=== PATIENT | female | born 1990 | race Caucasian/White ===

== ENCOUNTER → 2018-07-04 | Outpatient (CLI) | payer MEDICAID ==
[~2018-07-04] MED LIST: CEPH500C PO; FERR-18 PO; IBUP800T48 PO; PREN1TAB49 PO
== END | disposition home or self-care (01) ==
LOC: U/S 10:25
PROVIDERS: ATTEND Registered Nurse Obstetric, Inpatient
DX: O36.70X0 Maternal care for viable fetus in abdominal pregnancy, unspecified trimester, not applicable or unspecified (principal); Z3A.00 Weeks of gestation of pregnancy not specified
CPT/HCPCS: 76801; 76817

== ENCOUNTER 2018-08-24 17:07 | Emergency (ER) | payer MEDICAID ==
[~2018-08-24] VITALS: Ht 152.4 cm; Wt 105.8 kg
[2018-08-24 17:30] VITALS: Ht 152.4 cm; Wt 105.8 kg
[2018-08-24] MEDS ORDERED: ACETAMINOPHEN 500 MG TAB PO STA (19:05)
[2018-08-24] MEDS ORDERED: METOCLOPRAMIDE 10 MG TAB PO ONE (19:30)
[2018-08-24] MEDS ORDERED: ACET500C5 PO (21:13)
[2018-08-24] MEDS ORDERED: METO10TA92 PO (21:13)
[2018-08-24 21:15] VITALS: BP 109/61; PULSE 75; RESP 18
--- NOTE | 2018-08-24 21:16 | ERD ---
ER Documentation Chief Complaint Chief Complaint ABD. CRAMPS WITH N/V TODAY. 12 WKS . NO VAG. BLEEDING. HPI Patient is a 28-year-old female, G4, P2, A1, past medical history of gestational diabetes, presents the ER for concerns of lower abdominal cramps along with nausea and vomiting x1 day. Patient states she is 12 weeks . Patient states her TRANSITIONAL CARE [facility]IAISON Dr. Gibbs. Patient denies any vaginal bleeding or fluid loss . Patient denies any dysuria, urgency, urgency or hematuria. Patient states she is vomited 3 times today. Patient is tolerating p.o. fluids. Patient has normal urine output. Patient states her last menstrual period was on June 22, 2018. ROS All systems reviewed and are negative except as per history of present illness. Medications Home Meds Active Scripts Metoclopramide* (Reglan*) 10 Mg Tablet, 10 MG PO Q6 PRN for NAUSEA AND/OR VOMITING, #10 TAB Prov:HERNAN CUELLAR PA-C 08/24/18 Acetaminophen* (Tylophen*) 500 Mg Capsule, 1 CAP PO Q6H PRN for PAIN AND OR ELEVATED TEMP, #20 CAP Prov:HERNAN CUELLAR PA-C 08/24/18 Reported Medications Cephalexin* (Cephalexin*) 500 Mg Capsule, PO Q6 01/21/11 Ibuprofen* (Motrin*) 800 Mg Tab, PO Q8 01/21/11 Vits W-Ca,Fe,Fa(<1MG) () 1 Tab Tablet, 1 TAB PO D 12/12/10 Ferrous Sulfate (Iron) 325 Mg Tablet, 325 MG PO T 12/12/10 Allergies Allergies: Coded Allergies: No Known Allergy (Verified , 01/21/11) PMhx/Soc History of Surgery: No Anesthesia Reaction: No Hx Neurological Disorder: No Hx Respiratory Disorders: Yes (ASHTMA) Hx Cardiac Disorders: No Hx Psychiatric Problems: No Hx Miscellaneous Medical Probl: Yes (DENIES MEDICAL PROBLEMS) Hx Alcohol Use: No Hx Substance Use: No Hx Tobacco Use: No Smoking Status: Never smoker FmHx Family History: No diabetes Physical Exam Vitals Vital Signs Date Temp Pulse Resp B/P (MAP) Pulse Ox O2 O2 Flow FiO2 Time Delivery Rate 08/24/18 97.7 75 18 109/61 100 Room Air 21:15 (77) 08/24/18 97.6 83 18 160/80 100 17:30 (106) Physical Exam GENERAL: Well-developed, well-nourished female. Appears in no acute distress. HEAD: Normocephalic, atraumatic. EYES: Pupils are equally reactive bilaterally. EOMs grossly intact. No conjunctival erythema. ENT: Moist mucous membranes. No uvula deviation. No kissing tonsils. NECK: Supple. No meningismus. Normal range of motion of the neck. LUNG: Clear to auscultation bilaterally. No rhonchi, wheezing, rales or coarse breath sounds. HEART: Regular rate and rhythm. No murmurs, rubs or gallops. ABDOMEN: No scars, ecchymosis or rashes noted. Soft, and nondistended. Tender to palpation of the suprapubic region. Positive bowel sounds in all four quadrants. No rebound tenderness, no guarding. (-) McBurney's point tenderness. No CVA tenderness. BACK: No midline tenderness. EXTREMITIES: Equal pulses bilaterally. No peripheral clubbing, cyanosis or edema. No unilateral leg swelling. NEUROLOGIC: Alert and oriented. Moving all four extremities without any difficulty. Normal speech. Steady gait. SKIN: Normal color. Warm and dry. No rashes or lesions. Result Diagram: 08/24/18194408/24/181943 Results 24 hrs Laboratory Tests Test 08/24/18 19:44 08/24/18 19:45 Sodium Level 138 mmol/L Potassium Level 3.8 mmol/L Chloride Level 107 mmol/L Carbon Dioxide Level 22 mmol/L Anion Gap 9 Blood Urea Nitrogen 9 mg/dl Creatinine 0.50 mg/dl Est Glomerular Filtrat Rate mL/min > 60 mL/min Glucose Level 106 mg/dl Calcium Level 9.5 mg/dl Total Bilirubin 0.2 mg/dl Direct Bilirubin 0.00 mg/dl Indirect Bilirubin 0.2 mg/dl Aspartate Amino Transf (AST/SGOT) 14 IU/L Alanine Aminotransferase (ALT/SGPT) 12 IU/L Alkaline Phosphatase 50 IU/L Total Protein 7.4 g/dl Albumin 4.0 g/dl Globulin 3.40 g/dl Albumin/Globulin Ratio 1.17 Lipase 84 U/L White Blood Count 11.3 10^3/ul Red Blood Count 4.30 10^6/ul Hemoglobin 11.3 g/dl Hematocrit 35.0 % Mean Corpuscular Volume 81.4 fl Mean Corpuscular Hemoglobin 26.3 pg Mean Corpuscular Hemoglobin Concent 32.3 g/dl Red Cell Distribution Width 14.2 % Platelet Count 272 10^3/UL Mean Platelet Volume 9.1 fl Immature Granulocytes % 0.300 % Neutrophils % 76.1 % Lymphocytes % 17.6 % Monocytes % 5.0 % Eosinophils % 0.6 % Basophils % 0.4 % Nucleated Red Blood Cells % 0.0 /100WBC Immature Granulocytes # 0.030 10^3/ul Neutrophils # 8.6 10^3/ul Lymphocytes # 2.0 10^3/ul Monocytes # 0.6 10^3/ul Eosinophils # 0.1 10^3/ul Basophils # 0.0 10^3/ul Nucleated Red Blood Cells # 0.0 10^3/ul Urine Color YELLOW Urine Clarity CLOUDY Urine pH 7.0 Urine Specific Hendricks 1.021 Urine Ketones NEGATIVE mg/dL Urine Nitrite NEGATIVE mg/dL Urine Bilirubin NEGATIVE mg/dL Urine Urobilinogen NEGATIVE mg/dL Urine Leukocyte Esterase NEGATIVE Shailesh/ul Urine Microscopic RBC 1 /HPF Urine Microscopic WBC 2 /HPF Urine Squamous Epithelial Cells FEW /HPF Urine Bacteria FEW /HPF Urine Mucus MODERATE /HPF Urine Hemoglobin 1+ mg/dL Urine Glucose NEGATIVE mg/dL Urine Total Protein NEGATIVE mg/dl Current Medications Medications Dose Sig/Ashlee Start Time Status Last (Trade) Ordered Route PRN Stop Time Admin Dose Reason Admin 1,000 mg ONCE STAT 08/24/18 DC 08/24/18 Acetaminophen PO 19:05 19:51 (Tylenol 08/24/18 19:08 Tab) 10 mg ONCE ONCE 08/24/18 DC 08/24/18 Metoclopramid PO 19:30 19:50 e HCl 08/24/18 19:31 (Reglan) Procedures/MDM ED COURSE: The patient was stable throughout ED course. I kept the patient and/or family informed of laboratory and diagnostic imaging results throughout the ED course. DIAGNOSTIC IMAGING: Read by radiologist. Patient: OSMIN LOVING : 1990 Age: 28 Sex: F MR #: [id number] DOS: 08/24/18 1905 Ordering MD: HERNAN CUELLAR PA-C Location: [facility] Room/Bed: PROCEDURE: US OB Limited. CLINICAL INDICATION: with pelvic pain. TECHNIQUE: Transabdominal and transvaginal color flow, Doppler and andujar scale ultrasound images of the pelvis were obtained. COMPARISON: US PELVIS 07/04/2018 FINDINGS: Intrauterine gestation: Age: 13 weeks 3 days. Mean crown-rump length: 7.4 cm. Mean gestational sac diameter: 6.6 cm. Yolk sac: Not visualized appear heart rate: 154 bpm. Subchorionic collection: None. Placenta: Located anteriorly. Uterus: Masses: None. Nabothian cysts: None. Right ovary: Not well visualized. Left ovary: Size: 5.8 x 2.6 x 3.2 cm. Lesions: None. Vascularity: Normal. Adnexae: Masses: None. Fluid: None. IMPRESSION: Single live intrauterine with an estimated gestational age of 13 weeks 3 days, corresponding to an estimated date of delivery of February 26, 2019. Continued follow-up to assess for normal development is recommended.. Mildly enlarged, but otherwise unremarkable left ovary. Right ovary not well visualized. If characterization of this structure is needed repeat exam is recommended. RPTAT: AA .Ruddy Hagen MD, MD Date Time Electronically viewed and signed by .Ruddy Hagen MD, on 08/24/2018 20:35 .P/ CC: HERNAN CUELLAR PA-C [id number] PROCEDURES: None. MEDICATIONS GIVEN: Reglan, Tylenol Patient tolerated medication well with no adverse reactions. Patient reported improvement in pain. MEDICAL DECISION MAKING: This is a 28-year-old female, G4, P2, A1, presents the ER for concerns of pelvic pain along with nausea and vomiting x1 day. Vital signs were reviewed. Patient was afebrile. Patient was hemodynamically stable. Patient denied any vaginal bleeding. Blood work was obtained. CBC showed slightly elevated WBC count of 11.3. This is likely due to state and vomiting. Hematocrit noted to be 11.3, 35.0. Slight anemia noted. Patient was advised to continue taking vitamins. No indication for blood transition at this time. CMP showed no severe electrolyte abnormalities, acidosis, alkalosis, renal injury or liver injury. Lipase was within normal limits. UA was negative for acute infection or proteinuria. Patient's initial blood pressure was noted to be 160/80. Upon discharge, patient's blood pressure was noted to be within normal limits noted to be 109/61. Patient was encouraged to monitor her blood pressure closely and follow-up with her [facility]IA[facility] for further management of her blood pressure findings. Given these findings, the patient's presentation is most consistent with pelvic pain in the setting of as well as nausea and vomiting. Differential diagnosis included but was not limited to acute abdomen, appendicitis, pancreatitis, preeclampsia, ectopic , ruptured ectopic , molar , subchorionic hematoma, spontaneous , incomplete , complete , missed , placental abruption, placental previa, vasa previa, uterine rupture, anembyronic . PRESCRIPTIONS: Tylenol, Reglan DISCHARGE: At this time, patient is stable for discharge and outpatient management. Patient and/or family understands that her vaginal bleeding can be a normal finding or a sign of miscarriage. I have instructed the patient to follow-up with her OBGYN in 1-2 days for further monitoring including a repeat b-HCG level. I have instructed the patient to promptly return to the ER at any time for any new or worsening symptoms including increased pain, nausea, vomiting, continued bleeding, weakness, syncope or fever. The patient and/or family expressed understanding of and agreement with this plan. All questions were answered. Home care instructions were provided. Patients blood pressure was elevated (>120/80) but appears stable without evidence of hypertensive emergency, hypertensive urgency or end-organ failure. I had discussion with the patient about the risks of hypertension. I have advised the patient to follow up with his/her primary care physician for outpatient monitoring and treatment for hypertension in 2-3 days. I have instructed the pa tient to return to the ER for any new or worsening symptoms including chest pain, shortness of breath, headache, blurred vision, confusion, nausea, vomiting or LOC. Disclaimer: Inadvertent spelling and grammatical errors are likely due to EHR/dictation software use and do not reflect on the overall quality of patient care. Also, please note that the electronic time recorded on this note does not necessarily reflect the actual time of the patient encounter. Departure Diagnosis: Primary Impression: Pelvic pain affecting Trimester: second trimester Qualified Codes: O26.892 - Other specified related conditions, second trimester; R10.2 - Pelvic and perineal pain Additional Impression: Nausea & vomiting Condition: Fair Patient Instructions: Pelvic Pain In : Unclear (2-3 Trimester) Referrals: [facility] Additional Instructions: Follow-up with your [facility]IA[facility] doctor Sai further management of your symptoms elevated blood pressure. HERNAN CUELLAR PA-C Aug 24, 2018 21:16
== END 2018-08-24 21:22 | disposition home or self-care (01) ==
LOC: FTE 17:07
DX: O26.891 Other specified pregnancy related conditions, first trimester (principal); R10.2 Pelvic and perineal pain; O21.9 Vomiting of pregnancy, unspecified; O99.511 Diseases of the respiratory system complicating pregnancy, first trimester; J45.909 Unspecified asthma, uncomplicated; Z3A.13 13 weeks gestation of pregnancy
CPT/HCPCS: 36415; 76801; 80053; 81001; 83690; 85025; Z7502; Z7610

== ENCOUNTER 2018-10-07 13:40 | Outpatient (CLI) | payer MEDICAID ==
[~2018-10-07] VITALS: Ht 152.4 cm; Wt 107.5 kg
[~2018-10-07 13:40] MED LIST changes: +ACET500C5 PO; +METO10TA92 PO; +ONDA4TAB14 PO
[2018-10-07 14:27] VITALS: Ht 152.4 cm; Wt 107.5 kg
[2018-10-07 14:28] VITALS: BP 117/54; PULSE 78; RESP 20
--- NOTE | 2018-10-07 18:52 | PN ---
Triage Information Date/Time October 07, 2018 Reason for visit: 28-year-old female 4 para 2 at 21 weeks gestation complaining of lower abdominal pain for 1 or 2 days Weeks of Gestation 21 weeks /Para 4 para 2 Diabetes: none (Unknown) Hypertention: none Objective Vital Signs Date Temp Pulse Resp B/P (MAP) Pulse Ox O2 O2 Flow FiO2 Time Delivery Rate 10/07/18 98.5 78 20 117/54 Room Air 14:28 (75) Heart Rate: 150's Contractions: None Exam Patient was examined by caring nurse and report was cervix was closed Results/Medications Results 24 hrs Laboratory Tests Test 10/07/18 14:00 Urine Color YELLOW Urine Clarity CLOUDY A Urine pH 6.0 Urine Specific Botkins 1.019 Urine Ketones 1+ H Urine Nitrite POSITIVE A Urine Bilirubin NEGATIVE Urine Urobilinogen NEGATIVE Urine Leukocyte Esterase NEGATIVE Urine Microscopic RBC 6 H Urine Microscopic WBC 8 H Urine Squamous Epithelial Cells MANY A Urine Bacteria FEW A Urine Mucus MODERATE Urine Hemoglobin 2+ H Urine Glucose NEGATIVE Urine Total Protein 1+ H Imaging Results Cervix is closed, measuring 4.6 cm in length. Disposition: Discharge Assessment/Plan Patient with possible UTI Will empirically treat patient for urinary tract infection using Macrobid Refer to clinic in 2 days And cultures were ordered CBC still is pending JAMIN MENA MD Oct 07, 2018 18:52
--- NOTE | 2018-10-08 01:28 | TRIAGE ---
OB Triage Datetime Report Generated by CPN: 10/08/2018 01:27 Datetime: 10/07/2018 19:22 Stage of : OB Triage Assessment Type: Triage Maternal Assessment Level of Consciousness: Keenly Alert, Responsive DTR's/Clonus: DTRs 2+; No Clonus Headache: Denies Blurred Vision: No Respiratory Effort: Unlabored; Regular Rhythm; Equal Expansion Breath Sounds, Left: Clear and Equal Breath Sounds, Right: Clear and Equal Nausea/Vomiting: Denies RUQ Epigastric Pain: Denies Lower Extremities Edema: None Degree: None Upper Extremities Edema: None Degree: None Facial Edema: None Fall Risk Assessment History of Falling: (0) No Secondary Diagnosis: (0) No Ambulatory Aid: (0) Bedrest/Nurse Assist IV Therapy: (0) No Gait: (0) Normal/Bedrest/Immobile Mental Status: (0) Oriented to Own Ability Fall Score: 0 Fall Risk Score Definition: No Risk: No action required Datetime: 10/07/2018 18:06 Vaginal Exam Dilatation (cms): 0.0 Effacement (%): 30 Exam By: VAZQUEZ RN Vaginal Bleeding: None Cervix, Consistency: Soft Cervix, Position: Posterior Datetime: 10/07/2018 17:09 Labor Evaluation Frequency: NONE Pain Assessment Pain Scale: 2 Pain Presence: Constant Pain Type: Pressure Pain Location: Abdomen Pain Goal: 2 Membrane Status: Intact Datetime: 10/07/2018 15:22 EGA: 21.0 Datetime: 10/07/2018 14:20 Maternal Assessment Level of Consciousness: Keenly Alert, Responsive DTR's/Clonus: DTRs 2+; No Clonus Headache: Denies Blurred Vision: No Respiratory Effort: Unlabored; Regular Rhythm; Equal Expansion Breath Sounds, Left: Clear and Equal Breath Sounds, Right: Clear and Equal Nausea/Vomiting: Denies RUQ Epigastric Pain: Denies Facial Edema: None Temperature Route: Axillary Fall Risk Assessment History of Falling: (0) No Secondary Diagnosis: (0) No Ambulatory Aid: (0) Bedrest/Nurse Assist IV Therapy: (0) No Gait: (0) Normal/Bedrest/Immobile Mental Status: (0) Oriented to Own Ability Fall Score: 0 Fall Risk Score Definition: No Risk: No action required Datetime: 10/07/2018 13:49 Time of Arrival: 10/07/2018 13:30 EGA: 19.5 Arrived By: Ambulatory Arrived From: Home Chief Complaint: BLOODY MUCOUS SINCE THIS MORNING Contractions: Denies/Absent Time Contractions Began: 10/07/2018 05:00 Rupture of Membranes: Denies Vaginal Bleeding: Scant Vaginal Discharge: Present Recent Sexual Intercouse: Denies Abdominal Trauma: Not Applicable Patient Complaints: Other Provider Notified: marilu Initial Plan: EFM,CALL DR ARMENTA
== END 2018-10-07 19:53 | disposition home or self-care (01) ==
LOC: OBT 13:40 → L-D 13:40 → OBT 19:53
PROVIDERS: ATTEND Obstetrics & Gynecology
DX: O26.892 Other specified pregnancy related conditions, second trimester (principal); Z3A.21 21 weeks gestation of pregnancy; R10.30 Lower abdominal pain, unspecified
CPT/HCPCS: 76815; 76817; 81001; 85025; 87086; Z7500; G0463

== ENCOUNTER 2018-10-25 15:18 | Emergency (ER) | payer MEDICAID ==
[~2018-10-25] VITALS: Ht 157.5 cm; Wt 109.0 kg
[~2018-10-25 15:18] MED LIST changes: -CEPH500C PO; -IBUP800T48 PO; -METO10TA92 PO
[2018-10-25 15:28] VITALS: Ht 157.5 cm; Wt 109.0 kg
[2018-10-25] MEDS ORDERED: SOD CHLORIDE 0.9% 1,000 ML IV STA (16:08)
[2018-10-25] MEDS ORDERED: ONDANSETRON 4 MG INJ IV STA (16:08)
[2018-10-25] MEDS ORDERED: METOCLOPRAMIDE 10 MG INJ IV ONE (16:30)
[2018-10-25 19:35] VITALS: BP 115/64; PULSE 76; RESP 20
== END 2018-10-25 19:35 | disposition home or self-care (01) ==
LOC: FTE 15:18
DX: O21.9 Vomiting of pregnancy, unspecified (principal); R42 Dizziness and giddiness; O26.892 Other specified pregnancy related conditions, second trimester; O99.512 Diseases of the respiratory system complicating pregnancy, second trimester; J45.909 Unspecified asthma, uncomplicated; Z3A.23 23 weeks gestation of pregnancy
CPT/HCPCS: 36415; 76705; 76805; 81001; 84702; 85025; 86900; 86901; 87400; 96361; 96374; 96375; J2405; J2765; J7030; Z7502